=== PATIENT | female | born 1985 | race Hispanic/Latino ===

== ENCOUNTER 2018-01-10 15:59 | Emergency (ER) | payer MEDICAID ==
[2018-01-10] MEDS ORDERED: BENADRYL IM ONE (17:37)
--- NOTE | 2018-01-10 17:50 | Emergency Department Report ---
ED Psych HPI - General Chief Complaint: Weakness Stated Complaint: WEAKNESS Time Seen by Provider: 01/10/18 17:34 Source: patient Mode of arrival: Ambulatory - History of Present Illness Initial Comments: 30-year-old female past medical history seizures, ?bipolar/anxiety disorder, history of delusions presents with complaint of feeling more anxious than usual status post taking her first dose of Lamictal earlier today. As per patient she was prescribed Lamictal for symptoms of anxiety at [facility]. Patient is awake alert and oriented 3 fully lucid. Denies any hallucinations at this time. Patient is accompanied by a male friend at bedside who corroborates her medical/psych history. I specifically asked patient if she is suicidal or homicidal patient denies this at this time. States that 2 weeks ago she was admitted at [facility] for delusions of persecution. Patient states she was having delusions that she had been seeing demons. States that they were chasing her. Patient states that she still occasionally experiences hallucinations. States she feels slightly dizzy. Denies any chest pain shortness of breath or palpitations at this time. Denies upper or lower extremity paresthesias or tremors. Patient states that her first dose of Lamictal was earlier than has never taken it before. Patient states she takes Depakote for seizures. Denies alcohol or drug use. States she is also on Invega injections for her psychiatric symptoms. Complaint: other Onset/Timin -: hour(s) Associated Psychiatric Symptoms: none History of same: No Quality: constant Improves With: none Worsens With: none Associated Symptoms: denies other symptoms Treatments Prior to Arrival: none - Related Data Previous Rx's Medication Instructions Recorded Last Taken Type Hydroxyzine HCl 25 mg PO BID PRN #20 tablet 01/10/18 Unknown Rx Allergies Allergy/AdvReac Type Severity Reaction Status Date / Time No Known Allergies Allergy Unverified 01/10/18 16:19 ED Review of Systems ROS: Stated complaint: WEAKNESS Other details as noted in HPI Constitutional: denies: chills, fever Eyes: denies: eye pain, eye discharge, vision change ENT: denies: ear pain, throat pain Respiratory: denies: cough, shortness of breath, wheezing Cardiovascular: denies: chest pain, palpitations Endocrine: no symptoms reported Gastrointestinal: denies: abdominal pain, nausea, diarrhea Genitourinary: denies: urgency, dysuria, discharge Musculoskeletal: denies: back pain, joint swelling, arthralgia Skin: denies: rash, lesions Neurological: denies: headache, weakness, paresthesias Psychiatric: as per HPI, anxiety, visual hallucinations (patient states she occasionally "see's demons"). denies: depression Hematological/Lymphatic: denies: easy bleeding, easy bruising ED Past Medical Hx - Past Medical History Hx Seizures: Yes Hx Psychiatric Treatment: Yes (bipolar) Additional medical history: Endometriosis - Surgical History Past Surgical History?: No - Social History Smoking Status: Former Smoker Substance Use Type: Alcohol, Methamphetamines - Medications Home Medications: Home Medications Medication Instructions Recorded Confirmed Last Taken Type Hydroxyzine HCl 25 mg PO BID PRN #20 tablet 01/10/18 Unknown Rx ED Physical Exam - General Limitations: No Limitations General appearance: alert, in no apparent distress - Head Head exam: Present: atraumatic, normocephalic - Eye Eye exam: Present: normal appearance, PERRL, EOMI - ENT ENT exam: Present: mucous membranes moist - Neck Neck exam: Present: normal inspection - Respiratory Respiratory exam: Present: normal lung sounds bilaterally. Absent: respiratory distress - Cardiovascular Cardiovascular Exam: Present: regular rate, normal rhythm. Absent: systolic murmur, diastolic murmur, rubs, gallop - GI/Abdominal GI/Abdominal exam: Present: soft, normal bowel sounds - Extremities Exam Extremities exam: Present: normal inspection - Back Exam Back exam: Present: normal inspection - Neurological Exam Neurological exam: Present: alert, oriented X3, CN II-XII intact, normal gait - Expanded Neurological Exam Expanded Patient oriented to: Present: person, place, time Cranial nerves: EOM's Intact: Normal, Facial Sensation: Normal Sensory exam: Upper Extremity Light Touch: Normal Motor strength exam: RUE: 5, LUE: 5, RLE: 5, LLE: 5 Best Eye Response ([place]): (4) open spontaneously Best Motor Response (Paige): (6) obeys commands Best Verbal Response ([place]): (5) oriented Paige Total: 15 - Psychiatric Psychiatric exam: Present: normal affect, normal mood, anxious - Skin Skin exam: Present: warm, dry, intact, normal color. Absent: rash ED Course Vital Signs 01/10/18 01/10/18 16:11 18:57 Temperature 98.6 F 97.6 F Pulse Rate 109 H 95 H Respiratory 18 18 Rate Blood Pressure 132/83 Blood Pressure 135/94 [Left] O2 Sat by Pulse 97 100 Oximetry ED Medical Decision Making - Lab Data Result diagrams: 01/10/18 18:56 01/10/18 18:56 - Medical Decision Making A/P: Anxiety, possible adverse reaction to medication 1-I discussed with patient that it is possible that her symptoms of anxiety secondary to her first use of Lamictal. While I cannot see this with certainty patient does not have any signs of suicidality or homicidality at this time. I specifically asked her this at bedside with RN Destinee present several times and she denied. Patient's male friend at bedside states that he will assist her over the course in the next several days and can provide assistance to her for outpatient follow-up and check in on her as needed. 2-hydroxyzine when necessary for anxiety 3-I attempted to contact on-call psychiatric consultation services at [phone] but they were unavailable at this time in ED. advised patient to follow up as soon as possible with her outpatient psychiatrist via 4-Case discussed at length with Dr. Odom before discharge of patient. After my discussion with Dr. Odom he deemed that this patient does not need to be 1013'd and does npt require stat psych assessment given her lack of SI/HI at this time. Pt has documented follow-up referral from [facility] with [facility] for mental illness for [address] [place] [address] Ayleen Pickard [place]. . She must call to make appointment, pts urbano states he would help her with this. Critical care attestation.: If time is entered above; I have spent that time in minutes in the direct care of this critically ill patient, excluding procedure time. ED Disposition Clinical Impression: Anxiety Medication reaction Qualifiers: Encounter type: initial encounter Qualified Code(s): T50.905A - Adverse effect of unspecified drugs, medicaments and biological substances, initial encounter Disposition: DC-01 TO HOME OR SELFCARE Is pt being admited?: No Does the pt Need Aspirin: No Condition: Stable Instructions: Lamotrigine (By mouth), Anxiety (ED) Prescriptions: Hydroxyzine HCl 25 mg PO BID PRN #20 tablet PRN Reason: Anxiety Referrals: [facility] [Outside] - 3-5 Days Forms: Accompanied Note Time of Disposition: 18:05
[2018-01-10 18:58] VITALS: BP 135/94
[2018-01-10 19:14] LABS: Basophils % (Auto) 0.4 % (0.0-1.8); Eosinophils % (Auto) 0.3 % (0.0-4.3); Hemoglobin 13.4 gm/dl (10.1-14.3); Lymphocytes # (Auto) 0.9 K/mm3 (1.2-5.4); Lymphocytes % (Auto) 12.8 % (13.4-35.0); Mean Corpuscular HGB Conc 34 % (30-34); Mean Corpuscular Hemoglobin 31 pg (28-32); Mean Corpuscular Volume 92 fl (79-97); Monocytes # (Auto) 0.3 K/mm3 (0.0-0.8); Monocytes % (Auto) 4.7 % (0.0-7.3); Platelet Count 159 K/mm3 (140-440); Red Blood Count 4.35 M/mm3 (3.65-5.03); Red Cell Distribution Width 13.1 % (13.2-15.2)
[2018-01-10 19:33] LABS: BUN/Creatinine Ratio 16; Blood Urea Nitrogen 11 mg/dL (7-17); Calcium 9.7 mg/dL (8.4-10.2); Hemolysis Index 5
== END 2018-01-10 19:57 | disposition home or self-care (01) ==
LOC: ED 15:59 → EDBD 15:59 → ED 19:57
DX: T50.905A Adverse effect of unspecified drugs, medicaments and biological substances, initial encounter (principal); F41.9 Anxiety disorder, unspecified; F31.9 Bipolar disorder, unspecified; Z87.891 Personal history of nicotine dependence; F15.90 Other stimulant use, unspecified, uncomplicated
CPT/HCPCS: 36415; 80048; 82550; 85025; 96372; 99283; J1200